=== PATIENT | male | born 1970 | race Caucasian/White ===

== ENCOUNTER 2019-04-20 21:53 | Emergency (ER) | payer MEDICAID ==
[~2019-04-20] VITALS: Ht 180.3 cm; Wt 79.4 kg
[2019-04-20 21:58] VITALS: BP_SYST 155
--- NOTE | 2019-04-20 22:00 | NUR ---
Patient to ER bed 08 to gown for evaluation. Side rails up.
--- NOTE | 2019-04-20 22:01 | NUR ---
Pt brought by self, A&Ox4, pt presents to ER with L hand pain,redness and swelling after possible bugbite, pt is afebrile, skin pink and warm, cap refill <3, VSS, respirations even and unlabored.
--- NOTE | 2019-04-20 22:14 | NUR ---
ER Dr. Osorio at bedside examining patient.
[2019-04-20 22:34] VITALS: BP_SYST 148
--- NOTE | 2019-04-20 22:35 | NUR ---
Patient given written and verbal discharge instructions and verbalizes understanding. ER MD discussed with patient the results and treatment provided. Patient in stable condition. ID arm band removed. Rx of Bactrim given. Patient educated on pain management and to follow up with PMD. Pain Scale 2/10 tolerable for patient. Opportunity for questions provided and answered. Medication side effect fact sheet provided.
== END 2019-04-20 22:34 | disposition home or self-care (01) ==
LOC: SED 21:53
DX: L02.512 Cutaneous abscess of left hand (principal); R03.0 Elevated blood-pressure reading, without diagnosis of hypertension
CPT/HCPCS: 99283; 99284